=== PATIENT | male | born 1950 | race Caucasian/White ===

== ENCOUNTER 2021-04-15 09:24 | Emergency (ER) | payer OTHER ==
[~2021-04-15] VITALS: Ht 180.3 cm; Wt 86.0 kg
[2021-04-15 10:19] LABS: HEMATOCRIT 43.8 % (39.0-50.0); HEMOGLOBIN 14.3 g/dl (14.0-18.0); IMMATURE GRANULOCYTES 0.3 % (0.0-5.0); MEAN CELL VOLUME 95.6 fL CALC (80.0-100.0); MEAN CORPUSCULAR HGB 31.2 pG CALC (26.0-32.0); MEAN CORPUSCULAR HGB CONC 32.6 g/dL CAL (32.0-36.0); NEUT# 4.36 thou/uL (1.82-7.42); RED BLOOD COUNT 4.58 mill/uL (4.70-6.10); RED CELL DISTRI WIDTH 12.2 % (11.5-15.5)
[2021-04-15 11:06] LABS: ALBUMIN 4.3 g/dL (3.2-5.0); ALKALINE PHOSPHATASE 47 u/l (38-126); ANION GAP 14 (6-22 (CALC)); BILIRUBIN, TOTAL 1.4 mg/dL (0.0-1.4); BUN 19 mg/dL (8-23); BUN/CREATININE RATIO 23 (12-20 (CALC)); CARBON DIOXIDE 26 mmol/l (22-30); CHLORIDE 103 mmol/l (95-108); CREATININE 0.8 mg/dL (0.7-1.3); GFR > 60 ML/MIN (>=60 (CALC)); GFR FOR AFR.AMER. > 60 ML/MIN (>=60 (CALC)); POTASSIUM 4.4 mmol/l (3.5-5.1); SGOT/AST 35 u/l (19-48); SODIUM 139 mmol/l (137-146); TOTAL PROTEIN 8.5 g/dL (6.3-8.2)
[2021-04-15 12:30] VITALS: BP 149/96
[2021-04-15] MEDS ORDERED: MECLIZINE25 MG PO (12:38)
[2021-04-15] MEDS ORDERED: ZOFRAN4 MG/TAB PO (12:38)
== END 2021-04-15 12:36 | disposition home or self-care (01) | DRG 149 ==
LOC: ED 09:24
PROVIDERS: Emergency Medicine
DX: R42 Dizziness and giddiness (principal); R73.9 Hyperglycemia, unspecified; I48.91 Unspecified atrial fibrillation